=== PATIENT | female | born 1990 | race American Indian/Alaskan Native ===

== ENCOUNTER 2016-09-24 07:37 | Day surgery (SDC) | payer BC ==
[~2016-09-24 07:37] MED LIST: ANCEF/STERILE WATER 2 GM/20 ML IV NR
[2016-09-24] MEDS ORDERED: SUBLIMAZE IV PRN (09:11)
[2016-09-24] MEDS ORDERED: DILAUDID IV PRN (09:11)
[2016-09-24] MEDS ORDERED: NACL 0.9% 1000 ML 1,000 ML IV SCH (10:00)
[2016-09-24] MEDS ORDERED: VERSED IV NR (10:00)
[2016-09-24] MEDS ORDERED: PEPCID PO NR (10:00)
--- NOTE | 2016-09-24 10:09 | Anesthesia Day of Surgery ---
Anesthesia Day of Surgery - Day of Surgery Patient Examined: Yes Patient H&P Reviewed: Yes Patient is NPO: Yes Beta Blockers: No Cardiac Clearance: No Pulmonary Clearance: No
--- NOTE | 2016-09-24 10:10 | Anesthesia Consultation ---
Anesthesia Consult and Med Hx Date of service: 09/24/16 - Airway Anesthetic Teeth Evaluation: Poor (Patient mouth is WIRED shut cannot open) ROM Head & Neck: Adequate Mental/Hyoid Distance: Adequate Mallampati Class: Class III Intubation Access Assessment: Possibly Difficult - Pulmonary Exam CTA: Yes - Cardiac Exam Cardiac Exam: RRR - Pre-Operative Health Status ASA Pre-Surgery Classification: ASA3 Proposed Anesthetic Plan: General - Pulmonary Hx Smoking: Yes SOB: No - Cardiovascular System Hx Hypertension: No - Central Nervous System Hx Psychiatric Problems: No - Endocrine Hx Insulin Dependent Diabetes: Yes (bg to be checked this am/ no insulin taken) - Other Systems Hx Alcohol Use: Yes (OCCASIONALLY) Hx Substance Use: No Hx Cancer: No
[2016-09-24] MEDS ORDERED: DIPRIVAN 10 MG/ML IV ONE ×2 (10:18→11:22)
[2016-09-24] MEDS ORDERED: SUBLIMAZE ONE (10:18)
[2016-09-24] MEDS ORDERED: XYLOCAINE MPF 2% ONE (10:21)
[2016-09-24] MEDS ORDERED: PEPCID IV ONE (10:38)
[2016-09-24] MEDS ORDERED: PEPCID IV NR (11:00)
[2016-09-24] MEDS ORDERED: MARCAINE-EPI/PF 0.25%-1:200,000 INFILTRATI ONE (11:41)
--- NOTE | 2016-09-24 12:01 | Post Anesthesia Evaluation ---
- Post Anesthesia Evaluation Patient Participated: Yes Airway Patent: Yes Stable Respiratory Function: Yes Nausea/Vomiting: No Temp > 96.8F: Yes Pain Manageable: Yes Adequeate Hydration: Yes Anesthesia Complications: No Block Receding Appropriately: Not Applicable Patient on Ventilator: No
--- NOTE | 2016-09-24 12:22 | Operative Report ---
SERVICE: Plastic surgery. PREOPERATIVE DIAGNOSIS: Left mandibular fracture, status post maxillomandibular fixation with Shmuel arch bars and 24-gauge wire and screws. POSTOPERATIVE DIAGNOSIS: Left mandibular fracture, status post maxillomandibular fixation with Shmuel arch bars and 24-gauge wire and screws. PROCEDURE: Removal of hardware, deep. SURGEON: Luis Enrique Grace MD DESCRIPTION OF PROCEDURE: The patient was brought to the operating room and placed on the table in supine position. Following administration of general anesthesia, the wires were cut and removed. Laryngeal mask anesthesia was administered. A Fiatt elevator was used to elevate the mucosa off with the screws which were then removed one by one along with the Shmuel arch bars. The patient tolerated the procedure well and returned to recovery room in stable condition. JOB# [id number] FTW/NTS
[2016-09-24 17:45] VITALS: BP 131/82
== END 2016-09-24 13:32 | disposition home or self-care (01) ==
LOC: OR 07:37
PROVIDERS: ATTEND Plastic Surgery
DX: S02.609D Fracture of mandible, unspecified, subsequent encounter for fracture with routine healing (principal); E10.9 Type 1 diabetes mellitus without complications; F17.210 Nicotine dependence, cigarettes, uncomplicated; Z79.4 Long term (current) use of insulin; Z72.89 Other problems related to lifestyle; Z83.3 Family history of diabetes mellitus; X58.XXXD Exposure to other specified factors, subsequent encounter
CPT/HCPCS: 20670; 81025; 82962; J0690; J2250; J2704; J3010; J7030